=== PATIENT | male | born 1975 ===

== ENCOUNTER → 2021-06-04 | Day surgery (SDC) | payer OTHER ==
[~2021-06-04] MED LIST: DERMOPLAST PAIN78 GM TOP; KETO10TA2 PO; NEURONTIN300 MG PO; PERCOCET 5-3251 EACH PO
== END | disposition home or self-care (01) ==
LOC: ADM 06-03 09:45 → CIR.AMB 05:36
PROVIDERS: ATTEND Surgery
DX: K60.3 Anal fistula (principal); Z20.822 Contact with and (suspected) exposure to COVID-19

== ENCOUNTER 2021-09-15 07:43 | Day surgery (SDC) | payer OTHER ==
[2021-09-15] MEDS ORDERED: NEURONTIN300 MG PO (09:53)
[2021-09-15] MEDS ORDERED: PERCOCET 5-3251 EACH PO (09:53)
[2021-09-15] MEDS ORDERED: DERMOPLAST PAIN78 GM TOP (09:53)
[2021-09-15] MEDS ORDERED: KETO10TA2 PO (09:53)
== END 2021-09-15 16:15 | disposition home or self-care (01) ==
LOC: CIR.AMB 07:43 → O/R 09:33 → CIR.AMB 11:15 → O/R 14:45 → CIR.AMB 17:45 → O/R 09-16 08:31 → SURG 09-16 08:31 → O/R 09-16 10:08 → SURG 09-16 10:08
PROVIDERS: ATTEND Surgery
DX: K61.2 Anorectal abscess (principal); Z20.822 Contact with and (suspected) exposure to COVID-19